=== PATIENT | male | born 1980 | race American Indian/Alaskan Native ===

== ENCOUNTER 2017-03-22 03:40 | Emergency (ER) | payer BC ==
[2017-03-22 03:51] VITALS: RESP 20
[2017-03-22] MEDS ORDERED: Sodium Chloride 0.9% 1,000 ML IV STA (04:02)
[2017-03-22] MEDS ORDERED: Iohexol 240 (50 ml) PO STA (04:03)
[2017-03-22] MEDS ORDERED: Iohexol 240 (50 ml) ONE (04:12)
[2017-03-22 04:30] LABS: BASO % 0.3 % (0.0-2.0); EOS % 0.4 % (0.0-4.0); HEMATOCRIT 44.2 % (35.0-51.0); LYMPH # 0.9 K/uL (1.0-4.3); LYMPH % 15.3 % (20.0-40.0); MEAN CELL VOLUME 83.7 fl (80.0-94.0); MEAN CORPUSCULAR HEMOGLOBIN 28.3 pg (27.0-31.0); MEAN CORPUSCULAR HGB CONC 33.8 g/dL (33.0-37.0); MEAN PLATELET VOLUME 7.5 fl (7.2-11.7); MONO # 0.3 K/uL (0.0-0.8); MONO % 4.9 % (0.0-10.0); NEUT # 4.6 K/uL (1.8-7.0); NEUT % 79.1 % (50.0-75.0); NRBC % 0.1 % (0.0-0.0); RED CELL DISTRIBUTION WIDTH 12.7 % (11.5-14.5); WHITE BLOOD COUNT 5.8 K/uL (4.8-10.8)
[2017-03-22 04:40] LABS: ALB/GLOB RATIO 1.8 (1.0-2.1); ALKALINE PHOSPHATASE 85 U/L (38-126); ALT/SGPT 159 U/L (21-72); AST/SGOT 40 U/L (17-59); BILIRUBIN,TOTAL 0.6 mg/dl (0.2-1.3); BLOOD UREA NITROGEN 19 mg/dl (9-20); CARBON DIOXIDE 28 mmol/L (22-30); CHLORIDE 102 mmol/L (98-107); GFR AFRICAN-AMERICAN > 60; GLUCOSE,RANDOM 131 mg/dL (75-110); LIPASE 103 U/L (23-300); POTASSIUM 4.6 MMOL/L (3.6-5.0); SODIUM 143 mmol/l (132-148); TOTAL PROTEIN 7.7 G/DL (6.3-8.2)
--- NOTE | 2017-03-22 05:08 | ED PDOC ---
HPI: Abdomen Time Seen by Provider: 03/22/17 03:55 Chief Complaint (Nursing): Abdominal Pain Chief Complaint (Provider): Abdominal Pain History Per: Patient History/Exam Limitations: no limitations Onset/Duration Of Symptoms: Days (x1) Additional Complaint(s): 3:55 Pramod Vences, 36 year old male with Diverticular disease presents to the ED on 03/22/17 for abdominal pain occurring 1 day prior to arrival. The patient reports acute, sharp, stabbing abdominal pain rating it 10/ 10. The patient experiences nausea and nonbloody, nonbilious vomiting. The patient denies fever, diarrhea, cough, shortness of breath, or chest pain. He has taken Tylenol at home with no relief. The patient reports that he has traveled to the [facility] 1 week ago. Past Medical History Reviewed: Historical Data, Nursing Documentation, Vital Signs Vital Signs: Last Vital Signs Temp 97.9 F 03/22/17 03:48 Pulse 101 H 03/22/17 03:48 Resp 20 03/22/17 03:48 BP 153/101 H 03/22/17 03:48 Pulse Ox 99 03/22/17 06:16 - Medical History PMH: Diverticulitis - Surgical History Other surgeries: partial colon resection; heel spur surgery - Family History Family History: States: Unknown Family Hx - Social History Current smoker - smoking cessation education provided: No Alcohol: None Drugs: Denies - Allergies Allergies/Adverse Reactions: Allergies Allergy/AdvReac Type Severity Reaction Status Date / Time No Known Allergies Allergy Verified 03/22/17 03:58 Review of Systems Constitutional: Negative for: Fever Cardiovascular: Negative for: Chest Pain Respiratory: Negative for: Cough, Shortness of Breath Gastrointestinal: Positive for: Nausea, Vomiting, Abdominal Pain. Negative for : Diarrhea Physical Exam - Reviewed Nursing Documentation Reviewed: Yes Vital Signs Reviewed: Yes - Physical Exam Appears: Positive for: Non-toxic, No Acute Distress, Uncomfortable Head Exam: Positive for: ATRAUMATIC, NORMOCEPHALIC Skin: Positive for: Normal Color, Warm, Dry Eye Exam: Positive for: Normal appearance ENT: Positive for: Normal ENT Inspection Neck: Positive for: Normal, Painless ROM Cardiovascular/Chest: Positive for: Regular Rate, Rhythm, Chest Non Tender Respiratory: Positive for: Normal Breath Sounds. Negative for: Respiratory Distress Gastrointestinal/Abdominal: Positive for: Normal Exam, Soft. Negative for: Tenderness Back: Positive for: Normal Inspection Extremity: Positive for: Normal ROM. Negative for: Deformity Neurologic/Psych: Positive for: Alert, Oriented (x3) - Laboratory Results Result Diagrams: 03/22/17 04:27 03/22/17 04:27 - ECG O2 Sat by Pulse Oximetry: 99 (RA) Pulse Ox Interpretation: Normal Medical Decision Making Medical Decision Makin:55 Initial Impression: 36 year old male with abdominal pain, nausea, and vomiting in setting of knowing the patient has Diverticular disease. Initial Plan: * Abd Pelvis PO & IV Contrast CT Stat * CMP Stat * Lipase Stat * ED Urine Dipstick (POC) Stat * CBC (With Differential) Stat * IV Insertion (Saline Lock) Once * Urinalysis Stat * Morphine 4 mg IVP Once * Sodium Chloride 0.9% 1,000 ml IV 1,000 mls/hr * Omnipaque 240 (50 ML) 50 ml PO Stat * Zofran Inj 4 mg IV Stat * Reevaluation 7:00 Patient signed out to Dr. Musa pending labs, CT. Scribe Attestation: Documented by Lissa Castaneda, acting as a scribe for Vijay Ramirez MD. Provider Scribe Attestation: All medical record entries made by the Scribe were at my direction and personally dictated by me. I have reviewed the chart and agree that the record accurately reflects my personal performance of the history, physical exam, medical decision making, and the department course for this patient. I have also personally directed, reviewed, and agree with the discharge instructions and disposition. Disposition - Clinical Impression Clinical Impression: Abdominal pain - Patient ED Disposition Is Patient to be Admitted: Transfer of Care - Disposition Disposition: Transfer of Care Disposition Time: 07:00 Condition: FAIR Patient Signed Over To: Cem Musa (7:00)
[2017-03-22 05:24] LABS: RBC URINE 2 /hpf (0-3); URINE BILIRUBIN NEGATIVE (NEGATIVE); URINE BLOOD NEGATIVE (NEGATIVE); URINE COLOR YELLOW (YELLOW); URINE GLUCOSE (UA) NEG (Normal); URINE KETONE NEGATIVE (NEGATIVE); URINE LEUKOCYTE ESTERASE NEG Leu/uL (Negative); URINE PROTEIN NEGATIVE (NEGATIVE); URINE UROBILINOGEN 0.2-1.0 mg/dL (0.2-1.0); WBC URINE < 1 /hpf (0-5)
[2017-03-22] MEDS ORDERED: Sodium Chloride 0.9% 50 ML IV ONE (06:20)
[2017-03-22] MEDS ORDERED: Iohexol 300 100 ML IJ ONE (06:20)
--- NOTE | 2017-03-22 07:40 | CT ---
EXAM: CT Abdomen and Pelvis With Intravenous Contrast CLINICAL HISTORY: 36 years old, male; Pain; Abdominal pain; Generalized; Additional info: Abd pain TECHNIQUE: Axial computed tomography images of the abdomen and pelvis with intravenous contrast. This CT exam was performed using one or more of the following dose reduction techniques: automated exposure control, adjustment of the mA and/or kV according to patient size, and/or use of iterative reconstruction technique. Coronal and sagittal reformatted images were created and reviewed. CONTRAST: 99 mL of [id number] administered intravenously. EXAM DATE/TIME: 03/22/2017 4:02 AM COMPARISON: No relevant prior studies available. FINDINGS: Lower thorax: Small amount of enteric contrast in the distal esophagus. ABDOMEN: Liver: Unremarkable. No mass. Gallbladder and bile ducts: Unremarkable. No calcified stones. No ductal dilation. Pancreas: Unremarkable. No mass. No ductal dilation. Spleen: Unremarkable. No splenomegaly. Adrenals: Unremarkable. No mass. Kidneys and ureters: Unremarkable. No solid mass. No hydronephrosis. Stomach and bowel: Few scattered colonic diverticula no acute diverticulitis. No dilatation of small or large bowel. No mucosal edema. Appendix: Normal. PELVIS: Bladder: Unremarkable. No mass. Reproductive: Unremarkable as visualized. ABDOMEN and PELVIS: Intraperitoneal space: Unremarkable. No free air. No significant fluid collection. Bones/joints: No acute fracture. Soft tissues: Unremarkable. Vasculature: Unremarkable. No abdominal aortic aneurysm. Lymph nodes: No enlarged lymph nodes. IMPRESSION: No acute inflammation or intestinal obstruction. Mild esophageal dysmotility.
--- NOTE | 2017-03-22 09:30 | ED PDOC ---
- Laboratory Results Result Diagrams: 03/22/17 04:27 03/22/17 04:27 - ECG O2 Sat by Pulse Oximetry: 99 (RA) - Progress Re-evaluation Time: 09:28 Condition: Improved (Feels better, pain improved no vomiting) Disposition - Clinical Impression Clinical Impression: Abdominal pain, Diverticular disease - POA Present On Arrival: None - Disposition Disposition: Routine/Home Disposition Time: 09:29 Condition: FAIR Prescriptions: Ciprofloxacin HCl [Cipro] 500 mg PO BID #20 tab traMADol [Ultram] 50 mg PO Q8 #10 tab Instructions: Diverticulosis (ED)
[2017-03-22 09:49] VITALS: BP 136/86; PULSE 90; TEMP 98; O2SAT 98
== END 2017-03-22 09:50 | disposition home or self-care (01) ==
LOC: H.ER 03:40
DX: R10.9 Unspecified abdominal pain (principal); K57.90 Diverticulosis of intestine, part unspecified, without perforation or abscess without bleeding; K22.4 Dyskinesia of esophagus; R11.2 Nausea with vomiting, unspecified
CPT/HCPCS: 74177; 80053; 81003; 83690; 85025; 96361; 96374; 96375; 96376; 99284; J1170; J2270; J2405; J7040; Q9966; Q9967